=== PATIENT | female | born 1990 | race Caucasian/White ===

== ENCOUNTER 2017-10-01 01:34 | Inpatient (IN) | payer BC ==
[~2017-10-01] VITALS: Ht 165.1 cm; Wt 95.0 kg
[2017-10-01] MEDS ORDERED: VITAFOL-OB+DHA1 EACH PO (02:16)
[2017-10-01] MEDS ORDERED: MAGNESIUM27 MG PO (02:17)
[2017-10-01] MEDS ORDERED: CALCIUM500 M1 PO (02:18)
[2017-10-01] MEDS ORDERED: BUSPIRONE HCL7.5 MG PO (02:19)
--- NOTE | 2017-10-01 05:02 | PR ---
[facility] [address] [facility] [place] [address] Signed Progress Notes IP Datetime Report Generated by CPN: 10/01/2017 05:02 PROGRESS NOTES: [id number] Impression: Normal progression of labor Procedures: Artificial ROM Plan: Continue present management; Anticipate Vaginal Delivery VITAL SIGNS: [id number] Vital Signs: Reviewed; Within Normal Limits EXAM: [id number] Dilatation: 8.0 Effacement: 90 Station: -2 Uterine Contractions: every 3-5 minutes MEMBRANES: [id number] Membrane Status: Ruptured Amniotic Fluid Color: Clear Comments: More comfortable with Epidural. Fetus A: [id number] FHR Baseline: 145 Variability: Moderate 6-25bpm Presentation: Vertex Fetus B: [id number] Signing Physician: David Villagran MD Copies: ~ *Electronically Signed* 10/01/17 0502 DAVID VILLAGRAN MD PATIENT NAME: DEBBIE SUTTON PROGRESS NOTE DATE OF : 90 PHYSICIAN: DAVID VILLAGRAN MD RPT #: [id number] REPORT IS CONFIDENTIAL AND NOT TO BE RELEASED WITHOUT AUTHORIZATION
--- NOTE | 2017-10-01 05:53 | PR ---
[facility] [address] [facility] [place], [place] [address] Signed Progress Notes IP Datetime Report Generated by CPN: 10/01/2017 05:52 PROGRESS NOTES: [id number] Impression: Normal progression of labor Procedures: Artificial ROM Plan: Continue present management VITAL SIGNS: [id number] Vital Signs: Reviewed; Within Normal Limits EXAM: [id number] Dilatation: 8.0 Effacement: 95 Station: -1 Uterine Contractions: every 3-5 minutes MEMBRANES: [id number] Membrane Status: Ruptured Amniotic Fluid Color: Clear Comments: Comfortable with Epidural Fetus A: [id number] FHR Baseline: 130 Variability: Moderate 6-25bpm Accelerations: 15X15 Decelerations: Variable Presentation: Vertex Comments on Fetus A: occasional variables Fetus B: [id number] Signing Physician: David Villagran MD Copies: ~ *Electronically Signed* 10/01/17 0552 DAVID VILLAGRAN MD PATIENT NAME: DEBBIE SUTTON PROGRESS NOTE DATE OF : 90 PHYSICIAN: DAVID VILLAGRAN MD RPT #: [id number] REPORT IS CONFIDENTIAL AND NOT TO BE RELEASED WITHOUT AUTHORIZATION
--- NOTE | 2017-10-01 07:11 | PR ---
[facility] [address] [facility] [place], [place] [address] Signed Progress Notes IP Datetime Report Generated by CPN: 10/01/2017 07:11 PROGRESS NOTES: [id number] Impression: Slow Progression of Labor Procedures: Artificial ROM Plan: Continue present management VITAL SIGNS: [id number] Vital Signs: Reviewed; Within Normal Limits EXAM: [id number] Dilatation: 8.0 Effacement: 90 Station: -2 Uterine Contractions: every 3-4 minutes MEMBRANES: [id number] Membrane Status: Ruptured Amniotic Fluid Color: Clear Comments: Getting uncomfortable, Aneshesia here for redose Fetus A: [id number] FHR Baseline: 140 Variability: Moderate 6-25bpm Accelerations: 10X10 Decelerations: Variable Presentation: Vertex Comments on Fetus A: occasional variables Fetus B: [id number] Signing Physician: David Villagran MD Copies: ~ *Electronically Signed* 10/01/17710 DAVID VILLAGRAN MD PATIENT NAME: DEBBIE SUTTON PROGRESS NOTE DATE OF : 90 PHYSICIAN: DAVID VILLAGRAN MD RPT #: [id number] REPORT IS CONFIDENTIAL AND NOT TO BE RELEASED WITHOUT AUTHORIZATION
--- NOTE | 2017-10-02 09:10 | PR ---
[facility] [address] [facility] [place], [place] [address] Signed PP Progress Notes Datetime Report Generated by CPN: 10/02/2017 09:10 SUBJECTIVE: [id number] Pain: Within normal limits Pain Comments: Vertigo resolved Nausea/Vomiting: Denies Vital Signs: [id number] Vital Signs: Reviewed; Within Normal Limits EXAM: [id number] Cardiovascular: Not Done Respiratory: Not Done Abdomen/Uterus: Abnormal Lochia: Normal Vulva/Perineum: Not Done Breasts: Not Done CVA Tenderness: Not Done Extremities: Normal Incision: Not Applicable Progress: Normal Exam Comments: Fundus firm, NT @ U-1. H/H 11.7/33.2, WBC 7.5, plat 145k IMPRESSION/PLAN/PROCEDURES: [id number] Impression: Normal progression Plan: Continue present management Progress Notes: Doing well. Will continue current management. Signing Physician: Selam Pantoja MD Copies: ~ *Electronically Signed* 10/02/17 0910 SELAM PANTOJA MD PATIENT NAME: DEBBIE SUTTON PROGRESS NOTE DATE OF : 90 PHYSICIAN: SELAM PANTOJA MD RPT #: [id number] REPORT IS CONFIDENTIAL AND NOT TO BE RELEASED WITHOUT AUTHORIZATION
== END 2017-10-02 17:30 | disposition home or self-care (01) | DRG 775 ==
LOC: FBCO 01:34 → FBC 02:46
PROVIDERS: ADMIT Obstetrics & Gynecology
PROC: 10E0XZZ Delivery of Products of Conception, External Approach (ICD-10-PCS; principal; 2017-10-01)
PROC: 10907ZC Drainage of Amniotic Fluid, Therapeutic from Products of Conception, Via Natural or Artificial Opening (ICD-10-PCS; principal; 2017-10-01)
PROC: 00HU33Z Insertion of Infusion Device into Spinal Canal, Percutaneous Approach (ICD-10-PCS; 2017-10-01)
PROC: 3E0R3BZ Introduction of Anesthetic Agent into Spinal Canal, Percutaneous Approach (ICD-10-PCS; 2017-10-01)
DX: O99.824 Streptococcus B carrier state complicating childbirth (principal); Z3A.38 38 weeks gestation of pregnancy; Z37.0 Single live birth
CPT/HCPCS: 01960; 36415; 85027; J2210; J2405; J2540; J2590; J2795; J3010; J7120

== ENCOUNTER 2020-03-12 20:49 | Inpatient (IN) | payer BC ==
[~2020-03-12] VITALS: Ht 165.1 cm; Wt 98.4 kg
[~2020-03-12 20:49] MED LIST: BUSPIRONE HCL7.5 MG PO; CALCIUM500 M1 PO; MAGNESIUM27 MG PO; VITAFOL-OB+DHA1 EACH PO
--- NOTE | 2020-03-13 07:41 | PR ---
[facility] [address] [facility] [place], [place] [address] Signed Progress Notes IP Datetime Report Generated by CPN: 03/13/2020 07:41 PROGRESS NOTES: [id number] Impression: Reassuring Heart Rate Other Impressions: slow progress Plan: Augmentation VITAL SIGNS: [id number] Vital Signs: Reviewed; Within Normal Limits EXAM: [id number] Dilatation: 7.0 Effacement: 75 Station: -2 Contractions: difficult to monitor MEMBRANES: [id number] ROM Note: Amnisure sent Comments: Slow progress and contractions inadequate with IUPC. I feel pit augment needed and discussed with pt. FETUS A: [id number] FHR Baseline: 120 Variability: Moderate 6-25bpm Accelerations: 15X15 Decelerations: None Presentation: Vertex Comments on Fetus A: No evidence of metabolic acidosis FETUS B: [id number] Signing Physician: Selam Pantoja MD Copies: ~ *Electronically Signed* 03/13/20 0741 SELAM PANTOJA MD PATIENT NAME: DEBBIE SUTTON PROGRESS NOTE DATE OF : 90 PHYSICIAN: SELAM PANTOJA MD RPT #: [id number] REPORT IS CONFIDENTIAL AND NOT TO BE RELEASED WITHOUT AUTHORIZATION
--- NOTE | 2020-03-13 08:31 | PR ---
[facility] [address] [facility] [place], [place] [address] Signed Progress Notes IP Datetime Report Generated by DENNY: 03/13/2020 08:31 PROGRESS NOTES: [id number] Impression: Normal Progression of Labor Other Impressions: slow progress Procedures: Scalp Electrode Plan: Continue Present Management VITAL SIGNS: [id number] Vital Signs: Reviewed; Within Normal Limits EXAM: [id number] Dilatation: 7.0 Effacement: 75 Station: -2 Contractions: difficult to monitor MEMBRANES: [id number] ROM Note: Amnisure sent Comments: No real progress. FSE reapplied. Will continue with pitocin to improve contraction pattern. FETUS A: [id number] FHR Baseline: 120 Variability: Moderate 6-25bpm Accelerations: 15X15 Decelerations: None Presentation: Vertex Comments on Fetus A: No evidence of metabolic acidosis FETUS B: [id number] Signing Physician: Jelena Pantoja MD Copies: ~ *Electronically Signed* 03/13/20830 JELENA PANTOJA MD PATIENT NAME: DEBBIE SUTTON BHARATHI PROGRESS NOTE DATE OF : 90 PHYSICIAN: JELENA PANTOJA MD RPT #: [id number] REPORT IS CONFIDENTIAL AND NOT TO BE RELEASED WITHOUT AUTHORIZATION
--- NOTE | 2020-03-14 08:55 | PR ---
[facility] [address] [facility] [place], [place] [address] Signed PP Progress Notes Datetime Report Generated by DENNY: 03/14/2020 08:55 SUBJECTIVE: [id number] Pain: Within Normal Limits Vital Signs: [id number] Vital Signs: Reviewed Notable Details: intermittent HTN Cardiovascular: Not Done Respiratory: Not Done Abdomen/Uterus: Abnormal Lochia: Normal Vulva/Perineum: Not Done Breasts: Not Done CVA Tenderness: Not Done Extremities: Normal Incision: Not Applicable Progress: Normal Exam Comments: Fundus firm, NT @ U-2. H/H 12/34.8, WBC 9.6, plat 143k IMPRESSION/PLAN/PROCEDURES: [id number] Impression: Normal Progression Plan: Discharge Procedures: None Progress Notes: Doing well. She desires D/C. Signing Physician: Jelena Pantoja MD Copies: ~ *Electronically Signed* 03/14/20 0855 JELENA PANTOJA MD PATIENT NAME: DEBBIE SUTTON PROGRESS NOTE DATE OF : 90 PHYSICIAN: JELENA PANTOJA MD RPT #: [id number] REPORT IS CONFIDENTIAL AND NOT TO BE RELEASED WITHOUT AUTHORIZATION
== END 2020-03-14 12:45 | disposition home or self-care (01) | DRG 807 ==
LOC: FBCO 20:49 → FBC 23:25
PROVIDERS: ADMIT Obstetrics & Gynecology; ATTEND Obstetrics & Gynecology
PROC: 10E0XZZ Delivery of Products of Conception, External Approach (ICD-10-PCS; principal; 2020-03-13)
PROC: 10H07YZ Insertion of Other Device into Products of Conception, Via Natural or Artificial Opening (ICD-10-PCS; 2020-03-13)
PROC: 10907ZC Drainage of Amniotic Fluid, Therapeutic from Products of Conception, Via Natural or Artificial Opening (ICD-10-PCS; 2020-03-13)
PROC: 00HU33Z Insertion of Infusion Device into Spinal Canal, Percutaneous Approach (ICD-10-PCS; 2020-03-13)
PROC: 3E0R3BZ Introduction of Anesthetic Agent into Spinal Canal, Percutaneous Approach (ICD-10-PCS; 2020-03-13)
DX: O99.344 Other mental disorders complicating childbirth (principal); Z37.0 Single live birth; F41.1 Generalized anxiety disorder; Z3A.38 38 weeks gestation of pregnancy; O28.2 Abnormal cytological finding on antenatal screening of mother; O99.214 Obesity complicating childbirth; E66.9 Obesity, unspecified; O99.62 Diseases of the digestive system complicating childbirth; K21.9 Gastro-esophageal reflux disease without esophagitis
CPT/HCPCS: 01960; 36415; 84112; 85027; A9270; J2405; J2590; J2765; J7121